=== PATIENT | male | born 1965 | race Two or more races ===

== ENCOUNTER 2020-12-22 09:23 | Emergency (ER) | payer OTHER ==
[~2020-12-22] VITALS: Ht 185.4 cm; Wt 90.7 kg
[2020-12-22] MEDS ORDERED: SODIUM CHLORIDE 0.9% 1,000 ML IV ONE ×2 (10:30)
[2020-12-22] MEDS ORDERED: chlordiazePOXIDE HCL 25 MG CAP PO ONE (10:30)
[2020-12-22] MEDS ORDERED: THIAMINE 100mg/ml INJ (200mg/2ml VIAL) IV ONE (10:30)
[2020-12-22 10:55] LABS: Basophils # (auto) 0 10 ^3/uL (0-0.2); Basophils % (auto) 0.3 % (0.0-2.0); Eosinophils # (auto) 0 10 ^3/uL (0-0.8); Hematocrit 47.6 % (41.0-53.0); Hemoglobin 16.5 g/dL (13.5-17.5); Lymphocytes # (auto) 1.8 10 ^3/uL (0.4-5.4); Lymphocytes % (auto) 15.8 % (10.0-50.0); Mean Corpuscular Hemoglobin 31.2 pg (28.0-32.0); Mean Corpuscular Hgb Conc. 34.7 g/dL (32.0-36.0); Mean Corpuscular Volume 90.1 fL (80.0-100.0); Neutrophils # (auto) 8.6 10 ^3/uL (1.6-8.6); Neutrophils % (auto) 74.9 % (37.0-80.0); Nucleated Red Blood Cells % 0.2 %; Red Blood Cells 5.29 10^6/uL (4.5-5.90); Red Cell Distribution Width 13.7 % (11.8-14.3); White Blood Cell 11.5 10^3/uL (4.4-10.8)
[2020-12-22 11:18] LABS: Albumin 4.1 g/dL (3.4-5.0); Anion Gap 14 (5-15); Blood Urea Nitrogen 9 mg/dL (7-18); Calcium 8.9 mg/dL (8.5-10.1); Carbon Dioxide 26 mmol/L (21-32); Chloride 95 mmol/L (98-107); Glucose 105 mg/dL (74-106); Sodium 135 mmol/L (136-145)
[2020-12-22 11:22] LABS: Alanine Aminotransferase 42 U/L (16-61); Alkaline Phosphatase 71 U/L (45-117); Aspartate Aminotransferase 41 U/L (15-37); Bilirubin, Total 2.8 mg/dL (0.2-1.0); GFR African American 86 mL/min; GFR Non-African American 71 mL/min; Total Protein 9.4 g/dL (6.4-8.2)
[2020-12-22 11:23] LABS: Potassium 2.7 mmol/L (3.5-5.1)
[2020-12-22] MEDS ORDERED: POTASSIUM EFFERVESENT TAB 25 MEQ PO ONE (12:30)
[2020-12-22] MEDS ORDERED: LORazepam 2MG/ML-1ML VIAL ONE (14:25)
[2020-12-22] MEDS ORDERED: LORazepam 2MG/ML-1ML VIAL IV ONE (14:30)
[2020-12-22] MEDS ORDERED: THIAMINE 100mg/ml INJ (200mg/2ml VIAL) ONE (14:34)
[2020-12-22 16:10] VITALS: BP 132/93
== END 2020-12-22 16:19 | disposition home or self-care (01) ==
LOC: ER 09:25
DX: F10.129 Alcohol abuse with intoxication, unspecified (principal); E87.6 Hypokalemia; I10 Essential (primary) hypertension; Y90.9 Presence of alcohol in blood, level not specified
CPT/HCPCS: 36415; 80053; 80320; 84484; 85025; 93005; 96361; 96374; 96375; 99285; J2060; J3411; J7030